=== PATIENT | male | born 1960 | race Caucasian/White ===

== ENCOUNTER 2019-01-18 01:41 | Inpatient (IN) | payer BC, SELFPAY ==
[2019-01-18] VITALS (10 sets, daily range): BP systolic 110–157; BP diastolic 74–102; PULSE 73–110; RESP 14–18; TEMP 36.6–36.8; O2SAT 95–97; BMI 29.9; BMI 29.4; BMI 29.5
--- NOTE | 2019-01-18 01:43 | ED.RN ---
CALLED FOR EKG PER RN REQUEST, NO OLD EKGS IN MUSE
--- NOTE | 2019-01-18 01:57 | RAD_ITS ---
STUDY: X-RAY CHEST REASON FOR EXAM: Male, 58 years old. A. Fib. TECHNIQUE: 2 view chest. COMPARISON: None. FINDINGS: No apparent pneumothorax, pneumonia, pleural effusion, or edema. Cardiac silhouette, karina and mediastinal contours are within normal limits. No acute osseous abnormality. No evidence of free air under the diaphragm. RAD/Chest PA and Lateral IMPRESSION: Negative chest radiograph. Electronically Signed: Fritzmarcos Hood, at 2:37 EDT Tel , Service support ,
--- NOTE | 2019-01-18 01:57 | EKG12_ITS ---
Test Reason : PALPITATIONS Blood Pressure : / mmHG Vent. Rate : 103 BPM Atrial Rate : 159 BPM P-R Int : 000 ms QRS Dur : 084 ms QT Int : 336 ms P-R-T Axes : 000 -24 016 degrees QTc Int : 440 ms Atrial fibrillation with rapid ventricular response Abnormal ECG Confirmed by WALTER BRENNAN, TORIN ([id number]), editor dictionary KD ROTH ([id number]) on 01/20/2019 12:49:15 PM Referred By: ROJAS Confirmed By:TORIN WATSON MD
--- NOTE | 2019-01-18 01:58 | ED.DCSUM_ITS ---
History of Present Illness Chief Complaint: General Illness Narrative: Patient is a 58-year-old male with history of hypertension and hyperlipidemia who presents with palpitations. 2 days ago he had some blurry vision which has since resolved. Yesterday he had some chest heaviness. He states this feels like a brick was laying on his chest. He rated it as 2 out of 10. This has since resolved and not recurred. He did see a nurse at his place of employment who noted that his heart rate was borderline high and his blood pressure was 160s. He was advised to go to the emergency department. However he had missed his blood pressure for a couple of days so he wanted to go home and take it to see if it improved his symptoms. Today about 4 hours before presentation he developed palpitations. He feels like his heart is skipping or fluttering and also noted that his heart rate was high. He complains of mild associated shortness of breath. No history of prior similar symptoms. He reports a normal stress test about 6 months ago. No known history of coronary disease. No recent travel or surgery. No history of DVT or pulmonary embolism. No known coagulopathies. Past Medical History - Allergies and Home Meds Allergies/Adverse Reactions: Allergies No Known Allergies Allergy (Verified 05/02/15 11:03) Primary Care Physician: Pierce Bocanegra MD [Primary Care Provider] - Past Medical History: - - Hypertension, hyperlipidemia Smoking Status: Never smoker Review of Systems All systems negative except as indicated General: Denies: Fever Cardiovascular: Reports: Chest pain, Palpitations, Heart racing Respiratory: Reports: Dyspnea Gastrointestinal: Denies: Nausea, Vomiting, Diarrhea Physical Exam Vital Signs/Narrative: Vital Signs Temp Pulse Resp BP Pulse Ox 01/18/19 01:45 16 01/18/19 01:42 98.2 F 110 H 14 157/102 H 97 Inital Vital Signs reviewed: Yes General: Well nourished, Well developed Head: Normocephalic, Atraumatic Eyes: EOMI ENT: Moist mucous membranes Neck: Supple Cardiovascular: Irregular, Tachycardia Respiratory: No distress, CTA bilaterally Abdomen: Soft, Nontender Extremities: Nontender, No edema Skin: Normal color Neurological: Alert Psychological: Normal affect Diagnostic/Tx/Re-eval Impressions Chest X-Ray 01/18/19 01:57 IMPRESSION: Negative chest radiograph. Electronically Signed: Prashant Morataya, at 2:37 EDT Tel , Service support , 01/18/19 01:57 Chest PA and Lateral [RAD] Stat Laboratory Results 01/18/19 01/18/19 01:58 01:58 WBC 9.7 RBC 5.11 Hgb 15.0 Hct 43.5 MCV 85.1 MCH 29.4 MCHC 34.5 RDW Std Deviation 40.9 RDW Coeff of Keyonna 13.1 Plt Count 309 MPV 9.8 Immature Gran % (Auto) 0.300 Neut % (Auto) 61.3 Lymph % (Auto) 23.1 [place] % (Auto) 13.1 H Eos % (Auto) 1.6 Baso % (Auto) 0.6 Absolute Neuts (auto) 5.9 Absolute Lymphs (auto) 2.23 Nucleated RBC % 0 Sodium 142 Potassium 3.6 Chloride 110 H Carbon Dioxide 28.0 Anion Gap 4 L BUN 17 Creatinine 0.95 Estim Creat Clear Calc 85.38 Est GFR (MDRD) Af Amer 104 Est GFR (MDRD) Non-Af 86 BUN/Creatinine Ratio 17.9 Glucose 106 Calcium 8.9 Troponin I < 0.015 TSH 4.43 H - EKG Initial EKG Interpretation: Atrial Fibrillation, - - EKG shows atrial fibrillation with rapid ventricular response rate of 103. No acute ischemic changes. Normal QRS axis. - Medical Decision Making Patient presented in atrial fibrillation with RVR. During the time of my history and exam he was occasionally going as high as 1 40-1 50. He was given aspirin. He was given IV Cardizem. He was kept on a commercial journeyman electrician. Laboratory studies are unremarkable. Chest x-ray shows no acute process. On reevaluation patient remains in atrial fibrillation but is rate controlled at 80-90. His [id number] score is 1. Therefore we will defer if anticoagulation is needed to cardiology. Patient discussed with the hospitalist and admitted. ED Disposition - Plan for ED Patient: Disposition: Acute Care Hospital [facility] Diagnosis: Atrial fibrillation with rapid ventricular response Referrals: Pierce Bocanegra MD [Primary Care Provider] -
[2019-01-18] MEDS: Aspirin 81 MG TAB.CHEW 324 MG PO (02:01)
[2019-01-18] MEDS: dilTIAZem 25 MG/5 ML Vial 20 MG IV BOLUS (02:03)
[2019-01-18 02:06] LABS: Absolute Lymphocyte Count 2.23 X10^3/uL (0.83-4.51); Absolute Neutrophil Count 5.9 X10^3/uL (2.0-7.7); Basophil# 0.06 X10^3/uL; Basophil% 0.6 % (0-1); Eosinophil# 0.15 X10^3/uL; Eosinophils% 1.6 % (0-5); Hematocrit 43.5 % (40-54); Lymphocyte # 2.23 X10^3/ul (4.0); Lymphocyte % 23.1 % (19-41); Mean Corp Hgb Conc 34.5 g/dL (32-36); Mean Corpuscular Hgb 29.4 pg (27.0-32.0); Mean Corpuscular Volume 85.1 fL (80-94); Mean Platelet Vol. 9.8 fl (6.2-12.0); Monocyte# 1.26 X10^3/uL; Monocyte% 13.1 % (0-10); NRBC Flagged by Analyzer 0 % (0-5); Neutrophil # 5.92 X10^3/uL (2.7-7.7); Neutrophil % 61.3 % (47-70); Platelet Count 309 K/mm3 (150-450); RBC Distribution Width CV 13.1 % (11.6-14.6); RBC Distribution Width SD 40.9 fl (35.1-43.9); Red Blood Count 5.11 M/mm3 (4.6-6.2); White Blood Count 9.7 K/mm3 (4.4-11.0)
[2019-01-18 02:29] LABS: Anion Gap 4 (5-15); BUN 17 mg/dL (7-18); BUN/Creat Ratio 17.9 RATIO (10-20); Calcium,Total 8.9 mg/dL (8.5-10.1); Chloride 110 mmol/L (98-107); Creatinine, Serum 0.95 mg/dL (0.70-1.30); EST Glomerular Filtration Rate 86 mL/min (>60); Est Glom Filt Rate - Afr Amer 104 mL/min (>60); Estimated Creatinine Clearance 85.38 ml/min; Glucose 106 mg/dL (74-106); Potassium 3.6 mmol/L (3.5-5.1); Sodium Level 142 mmol/L (136-145); Thyroid Stim Hormone (TSH) 4.43 uIU/mL (0.358-3.74)
--- NOTE | 2019-01-18 03:15 | HP.PCM_ITS ---
History of Present Illness Date of Admission: 01/18/19 Chief Complaint: Palpitations The patient is a 58 year old M with past medical history of hypertension and hyperlipidemia. He was admitted through the ED on 01/18/2019 with a complaint of palpitations. Patient states 2 days prior to admission, he had blurred vision and also had palpitations. He went to his company nurse who told him he was a good idea to come to the ED but he did not. One day prior to admission, he had chest pain at his workplace and described it as a brick sitting on his chest. Again he saw his company nurse who told him that his blood pressure was elevated and his heart rate was also elevated and advised him to come to the ED but he did not. Today few hours prior to presentation, he started having palpitations and also had mild assist her shortness of breath. He did not have any chest pain or dizziness or blurred vision. He denied any abdominal pain, diarrhea vomiting. Review of systems otherwise negative. Patient states he had a stress test about 6 months ago which was normal. The ED, heart rate was 110 at time of initial presentation but came down to the 90s after being given a bolus of Cardizem. Vitals were otherwise stable. Chemistry was unremarkable and TSH was 4.43. CBC was unremarkable and chest x-ray showed no acute cardiopulmonary process. He has been admitted to be managed for new onset A. fib with RVR. [] Past Medical History Allergies No Known Allergies Allergy (Verified 05/02/15 11:03) Home Medications: Ambulatory Orders Medication Instructions Recorded Amlodipine [Norvasc] 10 mg PO DAILY 01/18/19 Atorvastatin Calcium 20 mg PO DAILY 01/18/19 Hydrochlorothiazide 12.5 mg PO DAILY 01/18/19 Paroxetine HCl 10 mg PO DAILY 01/18/19 Surgical History: no surgical history Psychiatric History: No pertinent psych hx Lives: Spouse/ Significant Other Smoking Status: Never smoker Alcohol: Occasional Drugs: None - *Family History Maternal History Items: Diabetes, Heart Disease Paternal History Items: Heart Disease Review of Systems Constitutional: Denies: Chills, Fever, Malaise, Weakness, Weight Change, Fatigue Eyes: Denies: Blurred vision HEENT: Denies: Head Aches, Sinus Congestion, Sinus Drainage Cardiovascular: Reports: Palpitations. Denies: Chest Pain, Heaviness, Light Headedness, Orthopnea Respiratory: Reports: Shortness of Breath. Denies: Cough, Shortness of breath at rest, Shortness of breath upon exertion, Sputum production Gastrointestinal: Denies: Abdominal Pain, Nausea, Vomiting Genitourinary: Denies: Dysuria Musculoskeletal: Denies: Joint Pain, Joint Tenderness Skin: Denies: Rash, Wounds Neurological: Denies: Numbness, Tingling, Focal weakness Psychiatric: Denies: Anxiety, Depression, Homicidal Ideations, Suicidal Ideations Hematologic/ Lymphatic: Denies: Easy Bruising, Easy Bleeding VTE Information - Inpt Only VTE Present on Admission: No VTE Pharm Prophylaxis ordered?: Yes Patient Problems: Active and Suspected Problems Atrial fibrillation with rapid ventricular response (Acute) - Physical Exam General: Alert, Oriented x3, Cooperative, No apparent distress HEENT: Atraumatic, PERRLA, EOMI, Normocephalic Oral: Moist Mucosa Neck: Supple, No JVD, Negative Carotid Bruits Lungs: Clear to auscultation, Normal air movement, No rhonchi, No wheeze, No rales Cardiovascular: Normal S1, Normal S2, No murmurs, Irregular Rate, Tachycardic Abdomen: Bowel Sounds Present, Soft, Non Tender Extremities: No clubbing, No cyanosis, No edema, Capillary Refill Less than 3 Seconds Skin: No rashes, No breakdown Musculoskeletal: No Tenderness to Palpation of Joints or Extremities Lymphatic: No Cervical, Supraclavicular, or Inguinal Adenopathy Neurological: Cranial nerves II-XII grossly intact, Neuro grossly intact, Motor Exam 5/5 strength throughout Psych/Mental Status: Normal Affect, Appropriate, Alert and oriented to time, place, person, mood and affect Vital Signs Temp Pulse Resp BP Pulse Ox 98.2 F 98 16 110/74 95 01/18/19 01:42 01/18/19 02:08 01/18/19 02:08 01/18/19 02:08 01/18/19 02:08 Oxygen Delivery Method Room Air Weight: 209 lb 3.499 oz Body Mass Index (BMI) 29.9 Laboratory Tests Past 24 Hrs 01/18/19 01/18/19 01:58 01:58 WBC 9.7 RBC 5.11 Hgb 15.0 Hct 43.5 MCV 85.1 MCH 29.4 MCHC 34.5 RDW Std Deviation 40.9 RDW Coeff of Keyonna 13.1 Plt Count 309 MPV 9.8 Immature Gran % (Auto) 0.300 Neut % (Auto) 61.3 Lymph % (Auto) 23.1 [place] % (Auto) 13.1 H Eos % (Auto) 1.6 Baso % (Auto) 0.6 Absolute Neuts (auto) 5.9 Absolute Lymphs (auto) 2.23 Nucleated RBC % 0 Sodium 142 Potassium 3.6 Chloride 110 H Carbon Dioxide 28.0 Anion Gap 4 L BUN 17 Creatinine 0.95 Estim Creat Clear Calc 85.38 Est GFR (MDRD) Af Amer 104 Est GFR (MDRD) Non-Af 86 BUN/Creatinine Ratio 17.9 Glucose 106 Calcium 8.9 Troponin I < 0.015 TSH 4.43 H Diagnostic Data Chest X-Ray 01/18/19 01:57 IMPRESSION: Negative chest radiograph. Electronically Signed: Fritzmarcos Hood, at 2:37 EDT Tel , Service support , Assessment/Plan All Active Problems Atrial fibrillation with rapid ventricular response (Acute) 58-year-old male admitted with a complaint of palpitations. 1, New onset AFib with RVR * admit to PCU with telmetryu * HR now better controlled after he received a bolus of cardizem * initial troponin negative, will cycle * K is 3.6, will check Mg * start on PO metoprolol. * 2D echo * CHADVASC score is 1 (hypertension) * give PO aspirin 81mg daily * 2. Hypertension: controlled. On amlodipine and HCTZ. will dc HCTZ and start on metoprolol, as under 1. 3. Elevated TSH: TSH is 4.43. Will check free T4 and free T3 DVT prophylaxis: lovenox Code Visit Inpatient E&M: 18772 Init Hosp L3
[2019-01-18 04:12] LABS: Magnesium 2.3 mg/dL (1.6-2.6); T4 Free Direct 0.95 ng/dL (0.76-1.46)
[2019-01-18] MEDS: Metoprolol Tartrate 25 MG Tablet PO ×2 (04:21→09:04)
[2019-01-18 05:26] LABS: Absolute Lymphocyte Count 1.64 X10^3/uL (0.83-4.51); Absolute Neutrophil Count 7.4 X10^3/uL (2.0-7.7); Basophil# 0.04 X10^3/uL; Basophil% 0.4 % (0-1); Eosinophil# 0.12 X10^3/uL; Eosinophils% 1.2 % (0-5); Hematocrit 42.2 % (40-54); Hemoglobin 14.5 g/dL (13.0-16.5); Lymphocyte # 1.64 X10^3/ul (4.0); Lymphocyte % 16.3 % (19-41); Mean Corp Hgb Conc 34.4 g/dL (32-36); Mean Corpuscular Hgb 29.3 pg (27.0-32.0); Mean Corpuscular Volume 85.3 fL (80-94); Mean Platelet Vol. 9.7 fl (6.2-12.0); Monocyte# 0.85 X10^3/uL; Monocyte% 8.5 % (0-10); NRBC Flagged by Analyzer 0 % (0-5); Neutrophil # 7.37 X10^3/uL (2.7-7.7); Neutrophil % 73.3 % (47-70); Platelet Count 309 K/mm3 (150-450); RBC Distribution Width CV 13.2 % (11.6-14.6); RBC Distribution Width SD 41.1 fl (35.1-43.9); Red Blood Count 4.95 M/mm3 (4.6-6.2); White Blood Count 10.1 K/mm3 (4.4-11.0)
[2019-01-18 05:40] LABS: Anion Gap 6 (5-15); BUN 15 mg/dL (7-18); BUN/Creat Ratio 17.5 RATIO (10-20); Calcium,Total 8.5 mg/dL (8.5-10.1); Chloride 110 mmol/L (98-107); Creatinine, Serum 0.86 mg/dL (0.70-1.30); EST Glomerular Filtration Rate 97 mL/min (>60); Est Glom Filt Rate - Afr Amer 117 mL/min (>60); Estimated Creatinine Clearance 94.32 ml/min; Glucose 112 mg/dL (74-106); Potassium 3.7 mmol/L (3.5-5.1); Sodium Level 143 mmol/L (136-145)
[2019-01-18] MEDS: PARoxetine 10 MG Tablet PO (09:04)
[2019-01-18] MEDS: amLODIPine 10 MG Tablet PO (09:04)
[2019-01-18] MEDS: Enoxaparin 40 MG/0.4 ML Syringe SC (09:04)
--- NOTE | 2019-01-18 10:16 | PCM.PN.HOSP ---
Patient Problems: Active and Suspected Problems Atrial fibrillation with rapid ventricular response (Acute) Subjective: Feels better. No further palpitations. Had palpitations intermittently previously, but never to this extent. Vitals/I&O's: Vital Signs Temp Pulse Resp BP Pulse Ox 36.6 C 82 14 121/88 H 97 01/18/19 08:57 01/18/19 09:04 01/18/19 08:57 01/18/19 08:57 01/18/19 08:57 Oxygen Delivery Method Room Air Weight: 93.1 kg Body Mass Index (BMI) 29.4 Intake and Output for Last 24 Hours 01/16/19 01/17/19 01/18/19 23:59 23:59 23:59 Intake Total 120 / 120 Balance 120 / 120 General: Alert, No apparent distress HEENT: Atraumatic, Normocephalic Oral: Moist Mucosa, No Gingival or Mucosal Lesions/ Ulcerations Neck: No Nodes, Thyroid Normal Size and Texture Lungs: Clear to auscultation, Normal air movement, No rhonchi, No wheeze Cardiovascular: Normal S1, Normal S2, Irregular Rate Abdomen: Bowel Sounds Present, Soft, Non Tender, Non-Distended Extremities: No edema, No Calf Tenderness Laboratory Results 01/18/19 01:58: WBC 9.7, RBC 5.11, Hgb 15.0, Hct 43.5, MCV 85.1, MCH 29.4, MCHC 34.5, RDW Std Deviation 40.9, RDW Coeff of Keyonna 13.1, Plt Count 309, MPV 9.8, Immature Gran % (Auto) 0.300, Neut % (Auto) 61.3, Lymph % (Auto) 23.1, [place] % (Auto) 13.1 H, Eos % (Auto) 1.6, Baso % (Auto) 0.6, Absolute Neuts (auto) 5.9, Absolute Lymphs (auto) 2.23, Nucleated RBC % 0 01/18/19 01:58: Sodium 142, Potassium 3.6, Chloride 110 H, Carbon Dioxide 28.0, Anion Gap 4 L, BUN 17, Creatinine 0.95, Estim Creat Clear Calc 85.38, Est GFR (MDRD) Af Amer 104, Est GFR (MDRD) Non-Af 86, BUN/Creatinine Ratio 17.9, Glucose 106, Calcium 8.9, Troponin I < 0.015, TSH 4.43 H 01/18/19 01:58: Magnesium 2.3, Free T4 0.95, Free T3 pg/dL 3.0 01/18/19 05:14: WBC 10.1, RBC 4.95, Hgb 14.5, Hct 42.2, MCV 85.3, MCH 29.3, MCHC 34.4, RDW Std Deviation 41.1, RDW Coeff of Keyonna 13.2, Plt Count 309, MPV 9.7, Immature Gran % (Auto) 0.300, Neut % (Auto) 73.3 H, Lymph % (Auto) 16.3 L, [place] % (Auto) 8.5, Eos % (Auto) 1.2, Baso % (Auto) 0.4, Absolute Neuts (auto) 7.4, Absolute Lymphs (auto) 1.64, Nucleated RBC % 0 01/18/19 05:14: Sodium 143, Potassium 3.7, Chloride 110 H, Carbon Dioxide 27.0, Anion Gap 6, BUN 15, Creatinine 0.86, Estim Creat Clear Calc 94.32, Est GFR (MDRD) Af Amer 117, Est GFR (MDRD) Non-Af 97, BUN/Creatinine Ratio 17.5, Glucose 112 H, Calcium 8.5 01/18/19 05:14: Troponin I < 0.015 01/18/19 07:36: Troponin I < 0.015 Current Medications Amlodipine Besylate (Norvasc) 10 mg PO DAILY [facility] Last Admin: 01/18/19 09:04 Dose: 10 mg Documented by: Atorvastatin Calcium (Lipitor) 20 mg PO QHS [facility] Dextrose (D50w Syringe) 0 gm IV X1 PRN; Protocol PRN Reason: Hypoglycemia Enoxaparin Sodium (Lovenox) 40 mg SC DAILY@1000 [facility] Last Admin: 01/18/19 09:04 Dose: 40 mg Documented by: Glucagon () 1 mg IM .X1 PRN PRN Reason: Hypoglycemia Metoprolol Tartrate (Lopressor (Beta Kirti)) 25 mg PO BID [facility] Last Admin: 01/18/19 09:04 Dose: 25 mg Documented by: Paroxetine HCl (Paxil) 10 mg PO DAILY [facility] Last Admin: 01/18/19 09:04 Dose: 10 mg Documented by: Sodium Chloride () 10 - 40 ml IV UD PRN PRN Reason: SALINE FLUSH Medical Necessity - Tobacco Use Smoking Status: Former smoker Assessment/Plan All Active Problems Atrial fibrillation with rapid ventricular response (Acute) 1. Afib with RVR still in afib, but rate-controlled continue metoprolol CHADS-VASc 1. no OAC needed at this time. ASA 81. follow up echo follow up with cardiology as outpt advised to cut back on caffeine (normally has 5-6 cups coffee/day), told to have 1/day advised to DW PCP about getting a PSG Code Visit Procedures: Other Procedure - See Report - Non-billable rounding.
--- NOTE | 2019-01-18 10:25 | DCINST_ITS ---
- Discharge Diagnoses Current Active Problems: Current Active and Chronic Problems Atrial fibrillation with rapid ventricular response (Acute) You will use the following diet at home:: No restrictions, Other - only 1 cup of coffee/day. Your food should be the consistency of: Regular Your liquids should be the consistency of: Regular/Thin Discharge Activity: Return to Normal Activity Call your doctor if you observe: Increased palpitations (irregular heartbeat), - Instructions: What Is Atrial Flutter/Atrial Fibrillation?, Atrial Fibrillation Additional Instructions: You will need to get a polysomnogram (aka: sleep study) to evaluate for sleep apnea. You will need to get this arranged through your primary care physiciain. Allergies/Adverse Reactions: Allergies No Known Allergies Allergy (Verified 05/02/15 11:03) Medications to take at Discharge Amlodipine [Norvasc] 10 mg PO DAILY 01/18/19 Aspirin 81 mg PO DAILY #1 tab.chew 01/18/19 Atorvastatin Calcium 20 mg PO DAILY 01/18/19 Metoprolol Tartrate [Lopressor (beta sundeep)] 25 mg PO BID #60 tab 01/18/19 Paroxetine HCl 10 mg PO DAILY 01/18/19 The following prescriptions were given: Aspirin 81 mg PO DAILY #1 tab.chew Metoprolol Tartrate [Lopressor (beta sundeep)] 25 mg PO BID #60 tab Transmission Status: Pending to [facility]/pharmacy #[id number] Primary Care Physician: Pierce Bocanegra MD [Primary Care Provider] - Within 2 Weeks Test Results: Test results from this visit will be discussed in further detail at your follow- up appointment, if applicable. Please Follow Up With: [facility] When: 3-6 weeks Proposed Discharge Date: 01/18/19
--- NOTE | 2019-01-18 10:28 | PCM.DC.SUM ---
Discharge Date and Diagnosis - Problem List Patient Problems: Active and Suspected Problems Atrial fibrillation with rapid ventricular response (Acute) Date of Admission: 01/18/19 Date of Discharge: 01/18/19 - Primary Discharge Diagnosis Active and Suspected Problems Atrial fibrillation with rapid ventricular response (Acute) 1. Afib with RVR still in afib, but rate-controlled continue metoprolol CHADS-VASc 1. no OAC needed at this time. ASA 81. follow up echo follow up with cardiology as outpt advised to cut back on caffeine (normally has 5-6 cups coffee/day), told to have 1/day advised to [facility] PCP about getting a PSG Hospital Course and Treatment Imaging Results: 01/18/19 01:57 Chest PA and Lateral [RAD] Stat 01/18/19 05:55 Echo Complete [ECHO] AM (NON MEDS) Procedures: 2-D Echocardiogram Summary of Care Provided: The patient is a 58 year old M presents with afib w RVR. Did receive IV diltiazem. HR remained controlled, but remained in afib. Started on metoprolol. CHADS-VASc was 1 (for hypertension). Will be on ASA 81. To follow up with cardiology as outpt. [] Patient Problems: Active and Suspected Problems Atrial fibrillation with rapid ventricular response (Acute) - Physical Exam Vital Signs Temp Pulse Resp BP Pulse Ox 36.6 C 82 14 121/88 H 97 01/18/19 08:57 01/18/19 09:04 01/18/19 08:57 01/18/19 08:57 01/18/19 08:57 Oxygen Delivery Method Room Air Weight: 93.1 kg Body Mass Index (BMI) 29.4 Intake and Output for Last 24 Hours 01/16/19 01/17/19 01/18/19 23:59 23:59 23:59 Intake Total 120 / 120 Balance 120 / 120 Laboratory Tests Past 24 Hrs 01/18/19 01/18/19 01/18/19 01:58 01:58 01:58 WBC 9.7 RBC 5.11 Hgb 15.0 Hct 43.5 MCV 85.1 MCH 29.4 MCHC 34.5 RDW Std Deviation 40.9 RDW Coeff of Keyonna 13.1 Plt Count 309 MPV 9.8 Immature Gran % (Auto) 0.300 Neut % (Auto) 61.3 Lymph % (Auto) 23.1 [place] % (Auto) 13.1 H Eos % (Auto) 1.6 Baso % (Auto) 0.6 Absolute Neuts (auto) 5.9 Absolute Lymphs (auto) 2.23 Nucleated RBC % 0 Sodium 142 Potassium 3.6 Chloride 110 H Carbon Dioxide 28.0 Anion Gap 4 L BUN 17 Creatinine 0.95 Estim Creat Clear Calc 85.38 Est GFR (MDRD) Af Amer 104 Est GFR (MDRD) Non-Af 86 BUN/Creatinine Ratio 17.9 Glucose 106 Calcium 8.9 Magnesium 2.3 Troponin I < 0.015 TSH 4.43 H Free T4 0.95 Free T3 pg/dL 3.0 01/18/19 01/18/19 01/18/19 05:14 05:14 05:14 WBC 10.1 RBC 4.95 Hgb 14.5 Hct 42.2 MCV 85.3 MCH 29.3 MCHC 34.4 RDW Std Deviation 41.1 RDW Coeff of Keyonna 13.2 Plt Count 309 MPV 9.7 Immature Gran % (Auto) 0.300 Neut % (Auto) 73.3 H Lymph % (Auto) 16.3 L [place] % (Auto) 8.5 Eos % (Auto) 1.2 Baso % (Auto) 0.4 Absolute Neuts (auto) 7.4 Absolute Lymphs (auto) 1.64 Nucleated RBC % 0 Sodium 143 Potassium 3.7 Chloride 110 H Carbon Dioxide 27.0 Anion Gap 6 BUN 15 Creatinine 0.86 Estim Creat Clear Calc 94.32 Est GFR (MDRD) Af Amer 117 Est GFR (MDRD) Non-Af 97 BUN/Creatinine Ratio 17.5 Glucose 112 H Calcium 8.5 Magnesium Troponin I < 0.015 TSH Free T4 Free T3 pg/dL 01/18/19 07:36 WBC RBC Hgb Hct MCV MCH MCHC RDW Std Deviation RDW Coeff of Keyonna Plt Count MPV Immature Gran % (Auto) Neut % (Auto) Lymph % (Auto) [place] % (Auto) Eos % (Auto) Baso % (Auto) Absolute Neuts (auto) Absolute Lymphs (auto) Nucleated RBC % Sodium Potassium Chloride Carbon Dioxide Anion Gap BUN Creatinine Estim Creat Clear Calc Est GFR (MDRD) Af Amer Est GFR (MDRD) Non-Af BUN/Creatinine Ratio Glucose Calcium Magnesium Troponin I < 0.015 TSH Free T4 Free T3 pg/dL Discharge Diet: No Restrictions Discharge Activity: Return to Normal Activity Call your doctor if you observe: Increased palpitations (irregular heartbeat), - Home Medications: Medications to take at Discharge Amlodipine [Norvasc] 10 mg PO DAILY 01/18/19 Aspirin 81 mg PO DAILY #1 tab.chew 01/18/19 Atorvastatin Calcium 20 mg PO DAILY 01/18/19 Metoprolol Tartrate [Lopressor (beta sundeep)] 25 mg PO BID #60 tab 01/18/19 Paroxetine HCl 10 mg PO DAILY 01/18/19 Following Prescrptions Were Given to Patient: Aspirin 81 mg PO DAILY #1 tab.chew Metoprolol Tartrate [Lopressor (beta sundeep)] 25 mg PO BID #60 tab Transmission Status: Pending to [facility]/pharmacy #[id number] Primary Care Physician: Pierce Bocanegra MD [Primary Care Provider] - Within 2 Weeks Please Follow Up With: [facility] When: 3-6 weeks Patient Instructions: What Is Atrial Flutter/Atrial Fibrillation?, Atrial Fibrillation Disposition: Home Minutes spent on discharge:: 28 Patient Condition:: Good Medical Necessity - Tobacco Use Smoking Status: Former smoker Meaningful Use Info Meaningful Use Diagnoses (Choose all that apply): None applicable Code Visit OBSV E&M: 03351 Observation care discharge
--- NOTE | 2019-01-18 11:49 | CASEMGMT ---
RN CM Assessment Presentation: Palpitations, New onset Afib with RVR. Intro role of CM and purpose of RN CM assessment to patient and his . Pt is awake, alert and able to participate in assessment. Demographics, PCP and Pharmacy verified. Pt states he is independent, no care needs. No difficulty with physician f/u or obtaining prescriptions. Plan is to return home today. PCP: Dr. Bocanegra. Preferred Pharmacy: [facility] Insurance: [employer] Prescription Benefit: yes. LNOK: , Tiffanie Boateng Living Arrangements: Lives independently. no assist needed for ADL Transportation: drives DME: none HHC: none Patient DC goals: Home DC PLAN: Home Alia ARIAS RN ACM
== END 2019-01-18 13:20 | disposition home or self-care (01) | DRG 310 ==
LOC: ED 03:14 → PCU 03:38
PROVIDERS: Admitting Provider Student in an Organized Health Care Education/Training Program; Emergency Provider Emergency Medicine; Family Provider Internal Medicine; PCP Internal Medicine
DX: I48.91 Unspecified atrial fibrillation (principal); I10 Essential (primary) hypertension; E78.5 Hyperlipidemia, unspecified; R94.6 Abnormal results of thyroid function studies; Z87.891 Personal history of nicotine dependence; Z79.899 Other long term (current) drug therapy; Z79.82 Long term (current) use of aspirin
CPT/HCPCS: 36415; 71046; 80048; 83735; 84439; 84443; 84481; 84484; 85025; 93005; 93306; 99285; Q9957; A4216

== ENCOUNTER 2021-12-06 09:07 | Emergency (ER) | payer BC, SELFPAY ==
[2021-12-06 09:08] VITALS: BP 154/97; PULSE 66; RESP 18; TEMP 36.7; O2SAT 98; BMI 29.9
--- NOTE | 2021-12-06 09:43 | EDS_ITS ---
HPI History of Present Illness Chief Complaint: Eye Problem Informant: patient Onset/Context/Timing Location: Left Eye Onset: Days Context: Gradual Onset Timing: Waxes and wanes Current Severity: Mild Maximum Severity: Moderate Narrative Narrative: Patient presents with foreign body sensation to the left eye. He states he does not know what he might of gotten in his eye. It bothered him over the weekend and then was better. This morning it seems to be worse again. He states he was using the weedeater over the weekend but had glasses on as well as a face shield. He denies doing any metal work such as grinding. He was not doing any welding. He does not wear glasses or contacts. [facility] Medical History (Updated 12/06/21 @ 10:[address] Adrianna Erickson MD) Atrial fibrillation with rapid ventricular response High cholesterol Medical History no medical history Home Medications amlodipine 10 mg tablet 10 mg PO DAILY BLOOD PRESSURE 01/18/19 [History Last Taken Unknown] aspirin 81 mg chewable tablet 81 mg PO DAILY ##1 01/18/19 [Rx Last Taken Unknown] atorvastatin 20 mg tablet 20 mg PO DAILY CHOLESTEROL 01/18/19 [History Last Taken Unknown] metoprolol tartrate 25 mg tablet 25 mg PO BID #60 tabs 01/18/19 [Rx Last Taken Unknown] paroxetine HCl 10 mg tablet 10 mg PO DAILY DEPRESSION 01/18/19 [History Last Taken Unknown] Allergy/AdvReac Type Severity Reaction Status Date / Time No Known Allergies Allergy Verified 12/06/21 09:07 Social History Smoking Status: Never smoker ROS [facility] ED Constitutional Constitutional ED: Denies chills or fever(s) Eyes Eyes: Reports other Details: Foreign body sensation left ; Denies change in vision or discharge from eye(s) ENT ENT ED: Denies discharge from eye(s), rhinorrhea or sore throat Cardiovascular Cardiovascular: Denies chest pain or palpitations Respiratory/Chest Respiratory/Chest: Denies cough or dyspnea Gastrointestinal Gastrointestinal: Denies abdominal pain, diarrhea, nausea or vomiting Genitourinary Genitourinary ED: Denies dysuria Musculoskeletal Musculoskeletal: Denies back pain or extremity pain Integumentary Denies Abrasions or rash Neurologic Neurologic: Denies headache(s) or weakness Allergic/Immunologic Allergic/Immunologic ED: Denies lip swelling or urticaria EXAM Physical Exam Const Vital Signs: 12/06/21 09:08 Temperature 98.0 F Temperature Source Temporal Pulse Rate 66 Respiratory Rate 18 Blood Pressure 154/97 H Blood Pressure Mean 116 Pulse Ox 98 Oxygen Delivery Method Room Air Positive well nourished and well developed General Appearance ED: well developed HEENT Reports normocephalic and head/scalp atraumatic Eyes PERRL and EOMs intact bilaterally Eyes Narrative: Minimal injection left eye. Neck supple Chest Wall inspection of chest normal and palpation of chest normal Resp normal respiratory effort and clear to auscultation bilaterally Cardio regular rate and regular rhythm GI normal to inspection, nondistended, normoactive bowel sounds Palpation: soft Back/Spine no CVA tenderness Extremity normal to inspection Neuro oriented x3 and no sensory deficits noted Sensorium / Orientation: alert Motor Exam: strength 5/5 throughout Psych mental status grossly normal Skin no rashes or lesions noted MDM MDM MDM Narrative Medical decision making narrative: Tetracaine is applied to the left eye. Patient does have resolution of his pain. Slit-lamp examination is performed with no obvious foreign body. Upper eyelid is flipped. He does have an abrasion to the inner surface of his eyelid, but no foreign body is appreciated. Fluorescein is applied with no significant linear uptake. With patient having a wound on the inner surface of his eyelid I am concerned that he had a foreign body there previously. He will be covered with gentamicin eyedrops. He is given information for ophthalmology follow-up if not improving. Discharge Plan Triage Chief Complaint: Eye Problem ED Provider: Adrianna Erickson Dx/Rx/DC Orders Clinical Impression: Eyelid abrasion Instructions: ED Corneal Abrasion Prescriptions: No Action paroxetine HCl 10 MG tablet 10 mg PO DAILY atorvastatin 20 MG tablet 20 mg PO DAILY amlodipine 10 MG tablet 10 mg PO DAILY metoprolol tartrate 25 MG tablet 25 mg PO BID Qty: 60 0RF aspirin 81 MG tablet,chewable 81 mg PO DAILY Qty: 1 0RF Rx Instructions: over the counter. no prescription needed. Primary Care Provider: Pierce Bocanegra Referrals: Lawrence Carver MD [STAFF PHYSICIAN] - As Needed Pierce Bocanegra MD [Primary Care Provider] - Activity Restrictions/Additional Instructions: 2 drops of gentamicin to the affected eye 4 times daily until symptoms are fully resolved for 24 hours. Disposition Disposition: Home, Self Care
[2021-12-06] MEDS: Tetracaine 0.5% Ophthalmic Bottle 1 DRP LEFT EYE (10:13)
[2021-12-06] MEDS: Fluorescein 1 MG STRIP 1 STRIP LEFT EYE (10:13)
[2021-12-06 10:47] VITALS: BP 124/68; PULSE 82; RESP 15; O2SAT 97
[2021-12-06] MEDS: Gentamicin Sulfate 1 OPTH.BTL 2 DRP LEFT EYE (10:48)
== END 2021-12-06 10:49 | disposition home or self-care (01) ==
PROVIDERS: Emergency Provider Emergency Medicine; PCP Internal Medicine; Visit Provider Emergency Medicine
DX: S00.212A Abrasion of left eyelid and periocular area, initial encounter (principal); I48.91 Unspecified atrial fibrillation; X58.XXXA Exposure to other specified factors, initial encounter; E78.00 Pure hypercholesterolemia, unspecified; Z79.82 Long term (current) use of aspirin; Z79.899 Other long term (current) drug therapy
CPT/HCPCS: 99283